=== PATIENT | female | born 1970 | race Caucasian/White ===

== ENCOUNTER 2020-08-19 14:45 | Outpatient (CLI) | payer BC, SELFPAY ==
--- NOTE | 2020-08-19 14:52 | ECG_ITS ---
Measurements Intervals [place] Rate: 70 P: 41 IN: 138 QRS: -1 QRSD: 138 T: 88 QT: 419 QTc: 454 Interpretive Statements SINUS RHYTHM LEFT BUNDLE BRANCH BLOCK BASELINE ARTIFACT- I, II, III, AVR, AVL, AVF ABNORMAL ECG Electronically Signed On 08-19-2020 15:46:17 CDT by Juilo Xie D.O.
== END 2020-08-19 14:46 | disposition home or self-care (01) ==
LOC: ANHSURGERY 14:52
PROVIDERS: PCP Family Medicine; Visit Provider Urology
DX: I10 Essential (primary) hypertension (principal); N39.3 Stress incontinence (female) (male); Z01.818 Encounter for other preprocedural examination; I44.7 Left bundle-branch block, unspecified
CPT/HCPCS: 87086; 87088; 93005

== ENCOUNTER 2020-08-24 00:26 | Outpatient (CLI) | payer BC, SELFPAY ==
[2020-08-25 03:00] LABS: SARS-CoV-2 RNA PCR Negative
== END 2020-08-24 00:27 | disposition home or self-care (01) ==
LOC: ANHCOVIDDT 00:26
PROVIDERS: PCP Family Medicine; Visit Provider Urology
DX: Z01.812 Encounter for preprocedural laboratory examination (principal); Z20.828 Contact with and (suspected) exposure to other viral communicable diseases
CPT/HCPCS: 87635; C9803; U0003

== ENCOUNTER 2020-08-26 01:19 | Day surgery (SDC) | payer BC, SELFPAY ==
[2020-08-19 08:53] VITALS: BMI 23.5
--- NOTE | 2020-08-21 10:47 | PM.IMHP ---
H&P: HPI History of Present Illness Date/Time: 08/21/20 10:47 Chief complaint: stress incontinence Narrative: Melina Corona is a 49 year old female with JACK Review of Systems Review of Systems: All systems reviewed & are unremarkable except as noted in HPI and below PMFSH Social History Social History Smoking status: Never smoker Spiritual care concerns: No Meds Home Medications and Allergies Home Medications Medication Instructions Recorded Confirmed Type alprazolam 0.5 mg PO BID PRN 08/19/20 08/19/20 History ascorbic acid (vitamin C) [Vitamin 500 mg PO EVERY OTHER DAY 08/19/20 08/19/20 History C] [id number] 1 cap PO DIRECTED PRN 08/19/20 08/19/20 History eszopiclone 2 mg PO HS 08/19/20 08/19/20 History fluticasone propionate 1 spray INTRANASAL DAILY 08/19/20 08/19/20 History galcanezumab-gnlm [Emgality Pen] 120 mg SUBCUT MONTHLY 08/19/20 08/19/20 History loteprednol etabonate [Lotemax] 1 drp OPHTHALMIC (EYE) DIRECTED 08/19/20 08/19/20 History PRN magnesium 250 mg PO DAILY 08/19/20 08/19/20 History omega-3 fatty acids [[place] 3] 1,000 mg PO DAILY 08/19/20 08/19/20 History potassium chloride 30 meq PO DAILY 08/19/20 08/19/20 History thyroid (pork) [[place] Thyroid] 90 mg PO DAILY 08/19/20 08/19/20 History tizanidine 2 mg PO HS 08/19/20 08/19/20 History verapamil 180 mg PO QPM 08/19/20 08/19/20 History zinc 100 mg PO DAILY 08/19/20 08/19/20 History Allergies Allergy/AdvReac Type Severity Reaction Status Date / Time levofloxacin Allergy Itching Verified 08/19/20 08:53 Exam Const: General: cooperative and healthy appearing HENMT: Head: normal to inspection Eyes: General: appearance normal, both eyes and all related structures Resp: Effort & Inspection: normal respiratory effort Skin: General skin exam: normal color Neuro: General: patient oriented x3 Assessment and Plan Assessment and plan (1) JACK (stress urinary incontinence, female): Code(s): N39.3 - Stress incontinence (female) (male) Status: Acute Assessment and Plan: urethral sling
--- NOTE | 2020-08-25 10:25 | P.PNAN_ITS ---
Anes - Initial Pre Proc Eval Procedure: Operation Date: 08/26/20 07:30 Proposed Procedures p Urethral Sling - Gilbert Salgado MD Date/Time: 08/25/20 10:25 Surgeon: Gilbert Salgado MD Pre Op Diagnosis: stress incontinence Patient Data Age: 49 Gender: F Height: 1.7 m Weight: 68.04 kg Allergies Allergy/AdvReac Type Severity Reaction Status Date / Time levofloxacin Allergy Itching Verified 08/26/20 06:47 Home Medications Medication Instructions Recorded Confirmed Type alprazolam 0.5 mg PO BID PRN 08/19/20 08/26/20 History ascorbic acid (vitamin C) [Vitamin 500 mg PO EVERY OTHER DAY 08/19/20 08/26/20 History C] [id number]-cdvyorr-[id number] 1 cap PO DIRECTED PRN 08/19/20 08/26/20 History eszopiclone 2 mg PO HS 08/19/20 08/26/20 History fluticasone propionate 1 spray INTRANASAL DAILY 08/19/20 08/26/20 History galcanezumab-gnlm [Emgality Pen] 120 mg SUBCUT MONTHLY 08/19/20 08/26/20 History loteprednol etabonate [Lotemax] 1 drp OPHTHALMIC (EYE) DIRECTED 08/19/20 08/26/20 History PRN magnesium 250 mg PO DAILY 08/19/20 08/26/20 History omega-3 fatty acids [[place] 3] 1,000 mg PO DAILY 08/19/20 08/26/20 History potassium chloride 30 meq PO DAILY 08/19/20 08/26/20 History thyroid (pork) [[place] Thyroid] 90 mg PO DAILY 08/19/20 08/26/20 History tizanidine 2 mg PO HS 08/19/20 08/26/20 History verapamil 180 mg PO QPM 08/19/20 08/26/20 History zinc 100 mg PO DAILY 08/19/20 08/26/20 History Patient hx anesthesia problems: none Family hx anesthesia problems: none PMFSH Past Medical History Medical History (Updated 08/25/20 @ 10:26 by Moustapha Maurer MD) Anxiety Chronic GERD Endometriosis HTN (hypertension) Hypothyroidism Migraine JACK (stress urinary incontinence, female) Social History Social History Smoking status: Never smoker Spiritual care concerns: No Anes - Eval Final PreProcedure Day of Procedure 08/25/20 10:25 Patient weight: normal Heart: regular rate and rhythm Lungs: clear to auscultation and normal air movement Airway: Mallampati scale class II Neurological: alert and oriented Last oral intake: >/= 8 hours ASA classification: II Emergent: no Anesthetic plan: proceed Anesthesia type and monitoring: general LMA Informed Consent: The patient's anesthetic plan and its attendant risks and benefits were discussed with the patient/family/POA. Questions were solicited and answers provided to the satisfaction of the patient/family/POA.
--- NOTE | 2020-08-26 07:12 | WPDHPUPDATE1 ---
History and Physical Update Update Date/Time: 08/26/20 07:12 History and Physical has been reviewed, including an updated exam of the patient. There are NO changes in the patient's condition. Risks, benefits, and alternatives have been discussed and questions answered. Patient agrees to proceed with procedure.
[2020-08-26 07:34] VITALS: BP 127/69; PULSE 78; RESP 16; TEMP 36.3; O2SAT 100; BMI 24.3
[2020-08-26] MEDS: LACTATED RINGERS 1,000 ML 30 ML IV CONT (07:43)
--- NOTE | 2020-08-26 07:48 | SUR.PREOP ---
PT AWARE OF DELAY TO DUE EMERGENT ADD ON
[2020-08-26] MEDS: ceFAZolin 2 GM/D5W 50 ML 2 GM/50 ML BAG IVPB (08:15)
[2020-08-26] MEDS: KETOROLAC 30 MG/ML VIAL (*BKC) IV PUSH (08:33)
[2020-08-26] MEDS: BUPIVACAINE/EPINEPHRINE 0.25% 50 ML VIAL 10 ML INFILTRATE (08:33)
--- NOTE | 2020-08-26 08:37 | PM.PROC ---
Procedure Note - Detailed Date of procedure: 08/26/20 Pre-op diagnosis: stress incontinence Stress urinary incontinence Post-op diagnosis: same Procedure performed: Transobturator Mid-urethral sling Cystoscopy Description of procedure: Anesthesia: monitored anesthesia care This is a patient with confirmed stress urinary incontinence. She desires correction. She understands the risks of bleeding, infection, damage to the urinary tract, lack of cure of stress incontinence, recurrence of stress incontinence, postoperative voiding dysfunction including incontinence and retention, need for ancillary procedures to loosen remove the sling, postoperative voiding dysfunction including retention and overactive bladder, hip and leg pain, dyspareunia, mesh related complications including exposure and extrusion. She agrees to proceed. She understands it will not help overactive bladder symptoms if present. She was correctly identified and informed consent obtained. She is brought to the operating room. She was given appropriate anesthesia. She was placed in the dorsal lithotomy position. All pressure points were padded. She was given appropriate perioperative antibiotics and a time-out performed. A Suarez catheter is placed. I marked out the thigh incisions anesthetize the skin and made those incisions. I anesthetized the anterior vaginal wall over the mid urethra. I made a 1 cm incision. I dissected out laterally taking great care not to injure the urethra or the vaginal wall. Passed the helical trocars 1st on the left and then on the right from the thigh incision towards the vaginal incision. Sling was connected to the trocars and brought out through the thigh incision. I tensioned the sling appropriately. I cut and removed the plastic sheaths. I closed the incision with 2 0 Vicryl. I then performed cystoscopy. There was no surgical artifact or abnormalities inside the bladder. The urethra was normal without surgical artifact. I cut the excess sling material. I closed the incisions with glue. She was awakened and transferred to the PACU in stable condition. Implants: Mid urethral sling Anesthesia: MAC Surgeon: Gilbert Salgado MD Estimated blood loss (mL): 30 Drains: No Packing: No Pathology: none sent Complications: No immediate complications Condition: stable Disposition: PACU
[2020-08-26 08:45] VITALS: BP 157/73; PULSE 90; RESP 12; O2SAT 98
[2020-08-26 09:17] VITALS: BP 147/71; PULSE 74; RESP 14
--- NOTE | 2020-08-26 09:24 | SUR.PHASEII ---
0920- ambulated pt to bathroom, gait steady. voided small amt urine.
[2020-08-26 09:45] VITALS: BP 155/72; PULSE 70; RESP 15
[2020-08-26 10:14] VITALS: BP 157/69; PULSE 67; RESP 14
== END 2020-08-26 10:30 | disposition home or self-care (01) ==
PROVIDERS: PCP Family Medicine; Visit Provider Urology
PROC: (CPT 57288; principal; 2020-08-26 07:30)
DX: N39.3 Stress incontinence (female) (male) (principal); I10 Essential (primary) hypertension; E03.9 Hypothyroidism, unspecified; K21.9 Gastro-esophageal reflux disease without esophagitis; F41.9 Anxiety disorder, unspecified
CPT/HCPCS: 57288; A9270; C1771; J0690; J1885; J2250; J2704; J3010; J7030; J7120

== ENCOUNTER → 2020-11-14 15:59 | Outpatient (CLI) | payer BC, SELFPAY ==
--- NOTE | ~2020-11-14 | XR_ITS ---
EXAMINATION: XR hip LT 2V w AP pelvis DATE: 11/14/2020 16:18 INDICATION: Low back and left hip pain TECHNIQUE: Anteroposterior view of the pelvis and anteroposterior and frog-leg lateral views of the l eft hip were obtained. COMPARISON: None. FINDINGS: Mild lumbar levocurvature. Normal alignment at the bilateral hips. There are bilateral acetabular cross tie maker ssover signs consistent with mild anterior acetabular over coverage. No fracture or suspected avascul ar necrosis. Bilateral hip joint spaces are normal. IMPRESSION: 1. Bilateral acetabular crossover signs which could be seen with mild acetabular over coverage and pr edispose towards pincer-type femoral acetabular impingement. Reviewed, dictated and finalized at location B. TER CARTOGRAPHIC IMPRESSION: 1. Bilateral acetabular crossover signs which could be seen with mild acetabula r over coverage and predispose towards pincer-type femoral acetabular impingeme nt.
--- NOTE | ~2020-11-14 | XR_ITS ---
XR lumbar spine 2-3V DATE: 11/14/2020 16:18 INDICATION: Left low back pain, left hip pain. No known injury. TECHNIQUE: Standing AP, lateral and coned lateral lumbosacral views COMPARISON: None FINDINGS: There is rotatory levoscoliosis of the lumbar spine. No fracture or bone destruction or spondylolisthesis. There is mild degenerative spurring at L2-3. The sacroiliac joints are intact. IMPRESSION: Rotatory levoscoliosis of the lumbar spine Mild degenerative disease at L2-3 Reviewed, dictated and finalized at location A. 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
== END ==
PROVIDERS: Visit Provider Chiropractor
DX: M51.36 Other intervertebral disc degeneration, lumbar region (principal)
CPT/HCPCS: 72100; 73502